=== PATIENT | male | born 1955 | race Caucasian/White ===

== ENCOUNTER 2016-11-06 06:06 | Day surgery (SDC) | payer BC ==
[~2016-11-06] VITALS: Ht 167.6 cm; Wt 68.1 kg
[~2016-11-06 06:06] MED LIST: ASPI-535 PO; ESOM20SU PO; FLOMAX; SITA100T8 PO; TERA2CAP3 PO
[2016-11-06 07:48] VITALS: Ht 167.6 cm; Wt 68.1 kg
[2016-11-06 08:13] VITALS: BP 116/70; PULSE 59; RESP 17
[2016-11-06 09:45] VITALS: BP 119/77; PULSE 66; RESP 18
[2016-11-06] MEDS ORDERED: MIDAZOLAM 1 MG/ML 2 ML INJ ONE ×3 (09:45)
[2016-11-06] MEDS ORDERED: FENTAnyl 50 MCG/ML VIAL ONE ×2 (09:47)
--- NOTE | 2016-11-06 10:01 | GILP ---
DATE OF PROCEDURE: NAME OF PROCEDURES: 1. Esophagogastroduodenoscopy and biopsy. 2. Colonoscopy, biopsy, and polypectomy. SURGEON: Marly Kohler MD PREOPERATIVE DIAGNOSES: 1. Abdominal pain. 2. Chronic heartburn. 3. Chronic diarrhea. POSTOPERATIVE DIAGNOSES: 1. Hiatal hernia. 2. Gastroesophageal reflux disease. 3. Gastritis with erosions. 4. Gastric mucosal biopsies were taken for Helicobacter pylori test. 5. Colonoscopy all the way to the cecum. 6. Sigmoid colon polyp was removed using the snare and electrocautery. 7. Transverse colon polyp was removed using the biopsy forceps. 8. Random biopsies were taken to rule out microscopic colitis. 9. Internal hemorrhoids. INDICATION FOR THE PROCEDURE: Mr. Wily Logan is a 61-year-old male patient who had upper abdo sanam pain and chronic heartburn, not responding to therapy. He also had chronic diarrhea. The [facility] was scheduled for endoscopy and colonoscopy for further evaluation. The procedures and possible complications were well explained to the patient, he understood and cons ented to the procedures. DESCRIPTION OF PROCEDURE: Under the influence of fentanyl and Versed, the gastroscope was carefully introduced into the esophagus and under direct vision, it was advanced to the stomach and through t he pylorus into the duodenal bulb and descending duodenum. FINDINGS: ESOPHAGUS: The patient had hiatal hernia and gastroesophageal reflux disease. STOMACH: He had gastritis with erosions. Gastric mucosal biopsies were taken for H pylori test. DUODENUM: Normal. The colonoscope was carefully introduced in the rectum and under direct vision, it was advanced all the way to the cecum. FINDINGS: The patient had a sigmoid colon polyp and it was removed using the snare and electrocaute ry. The patient had a small transverse colon polyp and it was removed using the biopsy forceps. Ra ndom biopsies were taken to rule out microscopic colitis. The patient was noted to have internal he morrhoids. He tolerated the procedures very well and there was no complication from the procedures. At the end of the procedure, he was awake with stable vital signs, and he was discharged home to the care of h is family. IMPRESSION: Please see postoperative diagnoses. PLAN: 1. Continue Nexium. 2. Add Zantac 300 mg p.o. at bedtime. 3. Citrucel 1 scoop full dissolved in a glass of water p.o. b.i.d. 4. Await histopathology reports. 5. The patient will need followup colonoscopy in 5 years. Dictated By: MARLY ORTIZ/TANYA Conf#: [id number] DID#: [id number]
== END 2016-11-06 15:21 | disposition home or self-care (01) ==
LOC: GIL 06:06
PROVIDERS: ATTEND Internal Medicine Gastroenterology
DX: Z12.11 Encounter for screening for malignant neoplasm of colon (principal); K62.1 Rectal polyp; D12.5 Benign neoplasm of sigmoid colon; D12.3 Benign neoplasm of transverse colon; K44.9 Diaphragmatic hernia without obstruction or gangrene; K21.9 Gastro-esophageal reflux disease without esophagitis; K29.60 Other gastritis without bleeding; E11.9 Type 2 diabetes mellitus without complications
CPT/HCPCS: 43239; 45380; 87081; 88305; J2250; J3010; Z7610

== ENCOUNTER 2017-04-26 15:53 | Emergency (ER) | END 2017-04-26 20:31 | disposition home or self-care (01) | DX: S62.647A Nondisplaced fracture of proximal phalanx of left little finger, initial encounter for closed fracture (principal); S20.219A Contusion of unspecified front wall of thorax, initial encounter; S09.90XA Unspecified injury of head, initial encounter; R51 Headache; W11.XXXA Fall on and from ladder, initial encounter; Y92.9 Unspecified place or not applicable; Z87.891 Personal history of nicotine dependence | CPT/HCPCS: 70450; 71250; 72125; 73140; 96372; J2270; Z7502 ==